=== PATIENT | female | born 1985 | race African-American/Black ===

== ENCOUNTER 2022-07-15 16:21 | Emergency (ER) | payer SELFPAY ==
[~2022-07-15] VITALS: Ht 162.6 cm; Wt 150.6 kg
[2022-07-15] MEDS ORDERED: HYDRALAZINE HCL 20 MG/ML VIAL IV STA ×2 (16:53→18:50)
[2022-07-15] MEDS ORDERED: ASPIRIN EC81 MG PO (16:56)
[2022-07-15] MEDS ORDERED: HYDRALAZINE HCL25 MG PO (16:56)
[2022-07-15] MEDS ORDERED: [UNRECOGNIZED DRUG - OTHER] PO (16:56)
[2022-07-15] MEDS ORDERED: CLONIDINE HCL0.1 M1 (16:56)
[2022-07-15] MEDS ORDERED: LISINOPRIL10 MG PO (16:56)
[2022-07-15] MEDS ORDERED: HYDRALAZINE HCL 20 MG/ML VIAL ONE ×2 (17:55→19:08)
[2022-07-15] MEDS ORDERED: IOPAMIDOL 370 MG/ML 100 ML INFUS..BTL INJ ONE (18:03)
[2022-07-15] MEDS ORDERED: SODIUM CHLORIDE 0.9% 100 ML ONE (18:03)
[2022-07-15] MEDS ORDERED: LABETALOL HCL 5 MG/ML 20ML VIAL IV STA (18:50)
[2022-07-15] MEDS ORDERED: LABETALOL HCL 20 ML ONE (19:08)
[2022-07-15] MEDS ORDERED: CLONIDINE HCL 0.1 MG TAB ONE (19:54)
[2022-07-15] MEDS ORDERED: CLONIDINE HCL 0.1 MG TAB PO ONE (20:00)
[2022-07-15] MEDS ORDERED: CLONIDINE HCL0.1 MG PO (20:05)
== END 2022-07-15 20:42 | disposition left against medical advice (07) ==
LOC: FSED 16:48
DX: R07.9 Chest pain, unspecified (principal); I16.0 Hypertensive urgency; Z79.82 Long term (current) use of aspirin; Z79.899 Other long term (current) drug therapy; Z53.29 Procedure and treatment not carried out because of patient's decision for other reasons
CPT/HCPCS: 71260; 80053; 81025; 82553; 84484; 85025; 93005; 96374; 96375; 96376; 99284; J0360; J3490; J7050; Q9967